=== PATIENT | male | born 2000 | race Caucasian/White ===

== ENCOUNTER → 2022-02-18 12:01 | Outpatient (CLI) | payer OTHER, SELFPAY ==
--- NOTE | 2022-02-18 | DI.MRI.S_ITS ---
PROCEDURE: MR CERVICAL SPINE WO CON INDICATIONS: PAIN IN BACK TECHNIQUE: Noncontrast sagittal T1 spin echo and T2 fast spin echo, sagittal STIR, foraminal oblique sagittal T2 fast spin echo, and axial gradient echo or T2 fast spin echo through the cervical spine. COMPARISON: [facility], MR, MR THORACIC SPINE WO CON, 02/18/2022, 12:25. FINDINGS: Image quality: This examination is limited by involuntary motion artifact. Alignment and Curvature: There is straightening of the normal cervical lordosis. No focal AP alignment abnormality is seen. Bone Marrow: Marrow demonstrates normal overall signal. Spinal Cord: Visualized spinal cord has normal size and signal. No cerebellar tonsillar herniation. Paraspinous Soft Tissues: No paravertebral masses. Prevertebral soft tissues are normal in thickness. C2-C3: Normal appearance. C3-C4: The disc height and disk signal are well-preserved. Mild disc osteophyte complex is seen, which is eccentric to the right. No significant neural foraminal or central canal narrowing can be seen. C4-C5: The disc height and disk signal are well-preserved. At least moderate disc osteophyte complex is seen, with a central/left disc osteophyte protrusion, as on series 7, image 24. Mild facet joint hypertrophy is seen. There is [id number] right-sided and minimal left-sided neural foraminal narrowing. Moderate central canal narrowing is seen. There is associated mass effect upon the ventral spinal cord. C5-C6: The disc height and disc signal are relatively well preserved. A mild degree of generalized disc osteophyte complex is seen. Mild facet joint hypertrophy is seen. There is minimal right-sided and no left-sided neural foraminal narrowing seen. Minimal central canal narrowing is seen. C6-C7: No significant abnormality is seen. C7-T1: Normal appearance. IMPRESSION: Premature cervical spine degenerative changes are seen, which are overall worst at the C4-C5 level, where there is a central/left disc osteophyte protrusion, with associated moderate central canal narrowing and mass effect upon the ventral spinal cord. Dictated by: Raheem Ortega M.D. on 02/18/2022 at 13:05 Approved by: Raheem Ortega M.D. on 02/18/2022 at 13:08
--- NOTE | 2022-02-18 | DI.MRI.S_ITS ---
PROCEDURE: MR THORACIC SPINE WO CON INDICATIONS: PAIN IN BACK TECHNIQUE: Noncontrast sagittal T1 spine echo and T2 fast spin echo, sagittal STIR, axial T1 and T2 fast spin echo through the thoracic spine. COMPARISON: None. FINDINGS: Image quality: Excellent. Alignment and Curvature: There is normal bony alignment. Bone Marrow: Marrow is of normal overall signal. No acute vertebral body compression fractures. Spinal Cord: Visualized spinal cord is normal in size and signal. Paraspinous Soft Tissues: No paravertebral masses. Miscellaneous: Mild T7-T8 and T8-T9 degenerative disc changes. No central stenosis. No neural foraminal narrowing. No neural compression. IMPRESSION: 1. Mild T7-T8 and T8-T9 degenerative disc disease. 2. No central stenosis. 3. No neural foraminal narrowing. 4. No neural compression. 5. No vertebral body compression fracture. Dictated by: Hali Madden MD, PhD on 02/18/2022 at 15:03 Approved by: Hali Madden MD, PhD on 02/18/2022 at 15:06
== END ==
PROVIDERS: Referring Provider Family Medicine; Visit Provider Family Medicine
DX: M51.34 Other intervertebral disc degeneration, thoracic region (principal)
CPT/HCPCS: 72141; 72146